=== PATIENT | female | born 1985 | race Caucasian/White ===

== ENCOUNTER 2019-08-13 21:03 | Observation (INO) | payer BC ==
[~2019-08-13] VITALS: Ht 160 cm; Wt 68.8 kg
--- NOTE | 2019-08-13 21:10 | NUR ---
Late entry from 2109: Patient presents to ER c/o abd cramping in all quadrants. Patient has been getting fertility txs and had an egg retrieval today. Patient developed cramping and nausea afterward. This is patient's fourth egg retrieval and she has never experienced these symptoms afterward. Patient is in obvious pain. Respirations even and unlabored.
[2019-08-13] MEDS ORDERED: ONDANSETRON 2MG/ML, 2ML IVPush ONE (21:30)
[2019-08-13] MEDS ORDERED: SODIUM CHLORIDE 0.9% 1,000ML IVBOLUS ONE (21:30)
[2019-08-13] MEDS ORDERED: SODIUM CHLORIDE FLUSH 10ML SYR IVF ONE (21:30)
[2019-08-13] MEDS ORDERED: PLEASE ENTER ALLERGIES MC SCH (21:30)
[2019-08-13] MEDS ORDERED: ONDANSETRON 2MG/ML, 2ML ONE (21:31)
[2019-08-13] MEDS ORDERED: HYDROmorphone 1 MG/ML, 1ML INJ ONE ×2 (21:31→22:50)
[2019-08-13] MEDS: HYDROmorphone 1 MG/ML, 1ML INJ IVPush PRN ×2 (21:43→22:53)
[2019-08-13 22:04] LABS: BASOPHILS # (AUTO) 0.07 x10^3/uL (0-0.1); BASOPHILS % (AUTO) 1 % (0-1); EOSINOPHILS # (AUTO) 0.02 x10^3/uL (0-0.4); EOSINOPHILS % (AUTO) 0 % (1-7); LYMPHOCYTES # (AUTO) 1.99 x10^3/uL (1-3.4); LYMPHOCYTES % (AUTO) 14 % (22-44); MD NO; MEAN CORPUSCULAR HEMOGLOBIN 33.2 pg (27.0-34.8); MEAN CORPUSCULAR HGB CONC 33.6 g/dL (32.4-35.8); MEAN CORPUSCULAR VOLUME 98.8 fL (80-100); MONOCYTES # (AUTO) 0.73 x10^3/uL (0.2-0.8); MONOCYTES % (AUTO) 5 % (2-9); NEUTROPHILS # (AUTO) 11.18 x10^3/uL (1.8-6.8); NEUTROPHILS % (AUTO) 80 % (42-75); PLATELET COUNT 170 x10^3/uL (130-400); RED BLOOD COUNT 3.13 x10^6/uL (3.82-5.3); RED CELL DISTRIBUTION WIDTH 14.5 % (9.6-15.2)
[2019-08-13 22:15] LABS: ANION GAP 7 mmol/L (5-15); CHLORIDE 109 mmol/L (98-107); CREATININE 0.46 mg/dL (0.55-1.02)
[2019-08-13 22:25] LABS: MICROSCOPIC INDICATED
[2019-08-13 22:33] LABS: CULTURE INDICATED? NO
--- NOTE | 2019-08-14 00:40 | NUR ---
Report given to EVELIO Pineda. Patient to be transferred to room 355.
[2019-08-14 00:41] LABS: INTERNATIONAL NORMALIZED RATIO 0.94 (0.93-1.1)
[2019-08-14] MEDS ORDERED: ONDANSETRON 2MG/ML, 2ML IVPush PRN (01:00)
[2019-08-14] MEDS ORDERED: HYDROmorphone 2 MG/ML, 1ML IVPush PRN (01:00)
[2019-08-14] MEDS ORDERED: ACETAMINOPHEN 325 MG TABLET PO PRN (01:00)
[2019-08-14 01:21] VITALS: BP 114/69
[2019-08-14] MEDS ORDERED: OMNIPAQUE 350 MG/ML, 100ML BOTTLE ONE (02:27)
[2019-08-14 07:59] VITALS: BP 108/71
[2019-08-14] MEDS: morphine SULFATE 10 MG/ML, 1ML IVPush PRN ×2 (10:17→14:25)
[2019-08-14] MEDS ORDERED: SODIUM CHLORIDE 0.9%, 500ML IVBOLUS ONE (12:00)
[2019-08-14] MEDS ORDERED: SODIUM CHLORIDE 0.9% 1,000 ML IV SCH (12:00)
[2019-08-14 13:25] VITALS: BP 108/71
[2019-08-14 14:22] VITALS: BP 105/70
[2019-08-14] MEDS ORDERED: HYDR2TAB29 PO (16:22)
[2019-08-14] MEDS ORDERED: DOXY100C2 PO (16:22)
[2019-08-14] MEDS ORDERED: METR500T PO (16:22)
== END 2019-08-14 17:49 | disposition home or self-care (01) ==
LOC: ED 23:33 → INTOOBSV 08-14 00:33 → EDIP 08-14 00:33 → 3N 08-14 01:05
PROVIDERS: ADMIT Family Medicine; ATTEND Family Medicine
DX: N94.89 Other specified conditions associated with female genital organs and menstrual cycle (principal); D72.829 Elevated white blood cell count, unspecified; R10.2 Pelvic and perineal pain; D25.9 Leiomyoma of uterus, unspecified; D64.9 Anemia, unspecified
CPT/HCPCS: 36415; 74174; 76830; 80048; 81001; 82040; 85014; 85018; 85025; 85610; 85730; 96374; 96375; 96376; 99284; G0378; J1170; J2270; J2405; J7030; J7040; Q9967